=== PATIENT | female | born 1990 | race Caucasian/White ===

== ENCOUNTER → 2020-10-04 | Outpatient (CLI) | payer OTHER, SELFPAY ==
[2020-10-04 15:23] VITALS: BMI 41.8
[2020-10-04 17:05] LABS: Amphetamine Urine VISTA NEGATIVE (<1000 ng/mL); Barbiturate Urine VISTA NEGATIVE (< 200 ng/mL); Benzodiazepine Urine VISTA NEGATIVE (< 200 ng/mL); Cocaine Urine VISTA NEGATIVE (< 300 ng/mL); Ecstacy Urine VISTA NEGATIVE (< 500 ng/mL); Methadone Urine VISTA NEGATIVE (< 300 ng/mL); PCP Urine VISTA NEGATIVE (< 25 ng/mL); THC Urine VISTA NEGATIVE (< 50 ng/mL); Vista UDS pH Range 6
[2020-10-07 06:07] LABS: Chlamydia By Nucleic Acid AMP Negative (Negative)
[2020-10-07 13:43] LABS: Gonococcus By Nucleic Acid AMP Negative (Negative)
== END | disposition home or self-care (01) ==
LOC: LABSPEC 16:04
PROVIDERS: Referring Provider Obstetrics & Gynecology; Visit Provider Obstetrics & Gynecology
DX: Z34.80 Encounter for supervision of other normal pregnancy, unspecified trimester (principal)
CPT/HCPCS: 80307; 87086; 87088; 87491; 87591

== ENCOUNTER → 2020-10-26 13:06 | Outpatient (CLI) | payer OTHER, SELFPAY ==
[2020-10-04 15:23] VITALS: BMI 41.8
[2020-10-26 14:21] LABS: Absolute Lymphocyte Count 3.45 X10^3/uL (0.83-4.51); Basophil# 0.06 X10^3/uL; Basophil% 0.6 % (0-1); Hematocrit 38.3 % (37-47); Hemoglobin 12.9 g/dL (12.0-15.0); Lymphocyte # 3.45 X10^3/ul (4.0); Lymphocyte % 33.6 % (19-41); Mean Corp Hgb Conc 33.7 g/dL (32-36); Mean Corpuscular Volume 89.1 fL (81-99); Mean Platelet Vol. 8.5 fl (6.2-12.0); Monocyte# 0.66 X10^3/uL; Monocyte% 6.4 % (0-10); NRBC Flagged by Analyzer 0 % (0-5); Neutrophil # 5.96 X10^3/uL (2.7-7.7); Neutrophil % 57.9 % (47-70); Platelet Count 417 K/mm3 (150-450); RBC Distribution Width CV 13.3 % (11.6-14.6); RBC Distribution Width SD 43.6 fl (35.1-43.9); White Blood Count 10.3 K/mm3 (4.4-11.0)
[2020-10-26 14:40] LABS: Glucose Challenge Gest 1H 50g 192 mg/dL (70-140)
[2020-10-26 14:58] LABS: Thyroid Stim Hormone (TSH) 4.54 uIU/mL (0.358-3.74)
[2020-10-26 15:22] LABS: HIV - WCH Non-Reactive (Nonreactive); Hepatitis B Surface Antigen Non-Reactive (Nonreactive); Hepatitis C Antibody Non-Reactive (Nonreactive); Rubella IgG Reactive (Nonreactive); Syphilis Antibodies Non-reactive
== END ==
LOC: PAVLAB 13:10
PROVIDERS: Referring Provider Obstetrics & Gynecology; Visit Provider Obstetrics & Gynecology
DX: O99.210 Obesity complicating pregnancy, unspecified trimester (principal); O99.280 Endocrine, nutritional and metabolic diseases complicating pregnancy, unspecified trimester; E07.9 Disorder of thyroid, unspecified; Z3A.00 Weeks of gestation of pregnancy not specified; Z84.81 Family history of carrier of genetic disease
CPT/HCPCS: 36415; 82950; 84443; 85025; 86703; 86762; 86803; 86850; 86900; 86901; 87340

== ENCOUNTER → 2020-12-23 13:28 | Outpatient (CLI) | payer OTHER, SELFPAY ==
[2020-11-29 15:12] VITALS: BMI 42.8
[2020-12-09 08:51] VITALS: BMI 41.7
--- NOTE | 2020-12-23 13:31 | US_ITS ---
STUDY: SECOND AND THIRD TRIMESTER OBSTETRICAL ULTRASOUND REASON FOR EXAM: Female, 30 years old anatomy LMP: 08/08/2020 TECHNIQUE: Transabdominal TECHNICAL QUALITY: Adequate. PRIOR ULTRASOUND: None. FINDINGS: There is a single intrauterine fetus. The fetus is in a cephalic presentation. There is demonstrated cardiac activity with a heart rate of 149 bpm. There is a normal amniotic fluid volume. The largest amniotic fluid pocket measures 4.7 cm. The amniotic fluid index (ALBERTA) is cm. The placenta is anterior in location and is not low lying. There are Grade 0 placental changes. The cervix measures 4.3 cm in length. The adnexal regions are not visualized. BIOMETRY: BPD: 4.9 cm: 20 weeks, 6 days HC: 17.9 cm: 20 weeks, 2 days AC: 15.5 cm: 20 weeks, 4 days FL: 3.3 cm: 20 weeks, 2 days CI: 82.93% FL/BPD: 67.31% FL/HC: 18.46% FL/AC: 21.33% HC/AC: 1.16 age by current US: 20 weeks, 1 days. ESAU by current US: 05/11/2021. Estimated weight: 364 grams, +/- 55 grams, 92 %. Age by LMP: 19 weeks, 4 days. ESAU by LMP: 05/15/2021. ANATOMY: Gender: Male Cranium: Normal lateral ventricles. Normal choroid plexus. Normal cerebellum. Normal cisterna magna. Normal face, nose and lips. Chest: Normal 4-chamber heart. Abdomen/Pelvis: Normal diaphragm. Normal stomach. Normal abdominal wall. Normal cord insertion. Normal 3 vessel cord. Normal kidneys. Normal bladder. Spine: Normal cervical spine. Normal thoracic spine. Normal lumbar spine. Normal sacrum. Extremities: Normal bilateral upper extremities. Normal bilateral lower extremities. US/OB Anatomy Scan IMPRESSION: Living intrauterine of 20 weeks 1 day as described above. Electronically Signed: Javier Rust MD at 8:37 EDT Tel , Service support ,
== END ==
LOC: OPUS 13:29
PROVIDERS: Referring Provider Obstetrics & Gynecology; Visit Provider Obstetrics & Gynecology
DX: Z34.80 Encounter for supervision of other normal pregnancy, unspecified trimester (principal)
CPT/HCPCS: 76805; 76817

== ENCOUNTER → 2021-02-25 16:09 | Outpatient (CLI) | payer OTHER, SELFPAY ==
[2021-02-25 15:15] VITALS: BMI 42.1
[2021-02-25 17:44] LABS: T4 Free Direct 0.88 ng/dL (0.76-1.46); Thyroid Stim Hormone (TSH) 1.83 uIU/mL (0.358-3.74)
== END ==
LOC: LAB 16:10
PROVIDERS: Referring Provider Obstetrics & Gynecology; Visit Provider Obstetrics & Gynecology
DX: E07.9 Disorder of thyroid, unspecified (principal)
CPT/HCPCS: 36415; 84439; 84443

== ENCOUNTER → 2021-03-19 08:35 | Outpatient (CLI) | payer OTHER, SELFPAY ==
[2021-03-17 09:09] VITALS: BMI 42.1
--- NOTE | 2021-03-19 08:38 | US_ITS ---
HISTORY: abdominal mass LUQ r/o hernia pt is 32 weeks per patient -palp occurred after sneezing and is sore -x 1 week. TECHNIQUE: Real time left upper quadrant ultrasound performed in the transverse and coronal planes. # of images including paperwork 58. COMPARISON: None. FINDINGS: The left kidney is 11.6 cm in length with a cortical thickness of 1.6 cm. No hydronephrosis or gross renal mass is seen. The spleen is 10.7 cm in length and homogeneous in echotexture. No fluid collection or hernia is identified. Intrauterine gestation partially visualized. US/Abdomen Limited IMPRESSION: Unremarkable examination of the left upper quadrant. at 0946 Reported and signed by: Twila Chao MD Electronically Signed: Twila Chao MD at 9:45 EDT Tel , Service support ,
== END ==
PROVIDERS: Referring Provider Nurse Practitioner Women's Health; Visit Provider Nurse Practitioner Women's Health
DX: R19.00 Intra-abdominal and pelvic swelling, mass and lump, unspecified site (principal)
CPT/HCPCS: 76705

== ENCOUNTER → 2021-03-22 12:14 | Outpatient (CLI) | payer OTHER, SELFPAY ==
[2021-02-25 15:15] VITALS: BMI 42.1
[2021-03-17 09:09] VITALS: BMI 42.1
--- NOTE | 2021-03-22 12:19 | US_ITS ---
STUDY: SECOND AND THIRD TRIMESTER OBSTETRICAL ULTRASOUND - LIMITED REASON FOR EXAM: Female, 31 years old GDMA -- 32 weeks LMP: 08/08/2020. PRIOR ULTRASOUND: Comparison is made with prior study dated 12/23/2020. TECHNIQUE: Transabdominal TECHNICAL QUALITY: Adequate. FINDINGS: There is a single intrauterine fetus. The fetus is in a cephalic presentation. There is demonstrated cardiac activity with a heart rate of 136 bpm. There is a normal amniotic fluid volume. The largest amniotic fluid pocket measures 4.2 cm x 5.5 cm. The amniotic fluid index (ALBERTA) is 15.81 cm. The placenta is anterior in location and is not low lying. There are Grade 1 placental changes. The cervix measures 3 cm in length. BIOMETRY: BPD: 8.75 cm: 35 weeks, 2 days HC: 32.21 cm: 36 weeks, 2 days AC: 30.5 cm: 34 weeks, 3 days FL: 6.3 cm: 32 weeks, 4 days Age by LMP: 32 weeks, 2 days. ESAU by LMP: 05/15/2020. age by prior US: 33 weeks, 1 days. ESAU by prior US: 05/11/2021. age by current US: 34 weeks, 2 days. ESAU by current US: 05/01/2021. Estimated weight: 2368 grams, +/- 355 grams, 90.8 percentile. US/OB Limited With Biometrics IMPRESSION: Single live uterine gestation with a mean gestational age of 33 weeks and 1 day. The measurements obtained today fall within normal expected range. Electronically Signed: Enio Cherry MD at 14:58 EDT , Service support ,
== END ==
PROVIDERS: Referring Provider Obstetrics & Gynecology; Visit Provider Obstetrics & Gynecology
DX: O24.419 Gestational diabetes mellitus in pregnancy, unspecified control (principal); Z3A.00 Weeks of gestation of pregnancy not specified
CPT/HCPCS: 76816

== ENCOUNTER → 2021-03-29 16:19 | Outpatient (CLI) | payer OTHER, SELFPAY ==
[2021-03-29 15:26] VITALS: BMI 42.1
--- NOTE | 2021-03-29 16:26 | US_ITS ---
STUDY: OBSTETRICAL ULTRASOUND - BIOPHYSICAL PROFILE REASON FOR EXAM: Female, 31 years old decrease movement . well-being. LMP: 08/08/2020. PRIOR ULTRASOUND: Comparison is made with prior examination dated 03/22/2021. TECHNIQUE: Transabdominal TECHNICAL QUALITY: Adequate. FINDINGS: There is a single intrauterine fetus. The fetus is in a cephalic presentation. There is demonstrated cardiac activity with a heart rate of 166 bpm. There is a normal amniotic fluid volume. The largest amniotic fluid pocket measures 4.9 cm x 5.4 cm. The amniotic fluid index (ALBERTA) is 12.73 cm. The placenta is anterior in location and is not low lying. There are Grade 2 placental changes. Age by LMP: 32 weeks, 2 days. ESAU by LMP: 05/15/2021. BIOPHYSICAL PROFILE: Breathing Movements (FBM): 2 Gross Body Movements (GBM): 2 Tone (FT): 2 Amniotic Fluid Volume (AFV): 2 TOTAL SCORE: / US/Biophysical Prof W/O Non Stres IMPRESSION: Normal biophysical profile of 04/10. Electronically Signed: Enio Cherry MD at 20:19 EDT , Service support ,
== END ==
LOC: US 16:22
PROVIDERS: Referring Provider Obstetrics & Gynecology; Visit Provider Obstetrics & Gynecology
DX: O36.8190 Decreased fetal movements, unspecified trimester, not applicable or unspecified (principal); Z3A.00 Weeks of gestation of pregnancy not specified
CPT/HCPCS: 76819

== ENCOUNTER → 2021-04-12 15:40 | Outpatient (CLI) | payer OTHER, SELFPAY ==
[2021-04-12 15:20] VITALS: BMI 42.1
[2021-04-12 16:34] LABS: Absolute Lymphocyte Count 2.61 X10^3/uL (0.83-4.51); Absolute Neutrophil Count 4.7 X10^3/uL (2.0-7.7); Basophil# 0.03 X10^3/uL; Basophil% 0.4 % (0-1); Eosinophil# 0.08 X10^3/uL; Hematocrit 37.4 % (37-47); Hemoglobin 12.1 g/dL (12.0-15.0); Lymphocyte # 2.61 X10^3/ul (0.83-4.51); Lymphocyte % 32.6 % (19-41); Mean Corp Hgb Conc 32.4 g/dL (32-36); Mean Corpuscular Hgb 27.4 pg (27.0-32.0); Mean Corpuscular Volume 84.8 fL (81-99); Mean Platelet Vol. 9.6 fl (6.2-12.0); Monocyte# 0.59 X10^3/uL; Monocyte% 7.4 % (0-10); NRBC Flagged by Analyzer 0 % (0-5); Neutrophil # 4.66 X10^3/uL (2.7-7.7); Neutrophil % 58.1 % (47-70); Platelet Count 483 K/mm3 (150-450); RBC Distribution Width SD 46.3 fl (35.1-43.9); Red Blood Count 4.41 M/mm3 (4.2-5.4)
[2021-04-12 17:07] LABS: ALB/GLOB Ratio 0.6 RATIO (0.9-2.4); AST(SGOT) 19 U/L (15-37); Alanine Aminotransfer ALT/SGPT 26 U/L (13-56); Albumin, Serum 2.7 g/dL (3.2-5.0); Alkaline Phosphatase 189 U/L (45-117); Anion Gap 9 (5-15); BUN 11 mg/dL (7-18); BUN/Creat Ratio 15.4 RATIO (10-20); Calcium,Total 9.5 mg/dL (8.5-10.1); Chloride 103 mmol/L (98-107); Creatinine, Serum 0.72 mg/dL (0.55-1.02); EST Glomerular Filtration Rate 102 mL/min (>60); Est Glom Filt Rate - Afr Amer 124 mL/min (>60); Globulin 4.8 g/dL (2.2-4.2); Glucose 99 mg/dL (74-106); Potassium 4.2 mmol/L (3.5-5.1); Protein, Total 7.5 g/dL (6.4-8.2); Sodium Level 134 mmol/L (136-145)
[2021-04-12 17:31] LABS: Protein, Urine (Random) 52.9 mg/dL (<11.9); Protein:Creat Ratio 224 mg/g CRE (0-200)
== END ==
LOC: LABSPEC 15:42 → LAB 15:58
PROVIDERS: Referring Provider Nurse Practitioner Women's Health; Visit Provider Nurse Practitioner Women's Health
DX: O12.10 Gestational proteinuria, unspecified trimester (principal); Z3A.00 Weeks of gestation of pregnancy not specified
CPT/HCPCS: 36415; 80053; 82570; 84156; 85025

== ENCOUNTER → 2021-04-18 | Outpatient (CLI) | payer OTHER, SELFPAY ==
[2021-04-18 08:22] VITALS: BMI 45.3
== END | disposition home or self-care (01) ==
PROVIDERS: Visit Provider Nurse Practitioner Women's Health
DX: Z34.93 Encounter for supervision of normal pregnancy, unspecified, third trimester (principal)
CPT/HCPCS: 87081

== ENCOUNTER → 2021-04-19 12:13 | Outpatient (CLI) | payer OTHER, SELFPAY ==
[2021-02-25 15:15] VITALS: BMI 42.1
[2021-04-18 08:22] VITALS: BMI 45.3
[2021-04-18 09:10] LABS: ROM Internal Control Test YES-OK TO RESULT pt. (Internal QC); ROM Patient Test Negative (Negative)
--- NOTE | 2021-04-19 12:16 | US_ITS ---
STUDY: SECOND AND THIRD TRIMESTER OBSTETRICAL ULTRASOUND - LIMITED REASON FOR EXAM: Female, 31 years old GDMA -- 36 weeks LMP: 08/08/2020. PRIOR ULTRASOUND: Comparison is made with prior study dated 03/29/2021. TECHNIQUE: Transabdominal TECHNICAL QUALITY: Adequate. FINDINGS: There is a single intrauterine fetus. The fetus is in a cephalic presentation. There is demonstrated cardiac activity with a heart rate of 148 bpm. There is a normal amniotic fluid volume. The largest amniotic fluid pocket measures 6.5 cm x 8.1 cm. The amniotic fluid index (ALBERTA) is 16.3 cm. The placenta is anterior in location and is not low lying. There are Grade 2 placental changes. The cervix was not measured. The patient did not fill the bladder adequately. BIOMETRY: BPD: 9.39 cm: 38 weeks, 1 days HC: 34.22 cm: 39 weeks, 3 days AC: 35.02 cm: 38 weeks, 6 days FL: 7.18 cm: 36 weeks, 5 days Age by LMP: 36 weeks, 2 days. ESAU by LMP: 05/15/2021. age by prior US: 38 weeks, 2 days. ESAU by prior US: 05/01/2021. age by current US: 38 weeks, 3 days. ESAU by current US: 04/30/2021. Estimated weight: 3492 grams, +/- 5.4 grams, 94.8 percentile. US/OB Limited With Biometrics IMPRESSION: Single live intrauterine gestation with a mean gestational age of 38 weeks and 2 days. The measurements obtained today fall within the normal expected range. Electronically Signed: Enio Cherry MD at 13:23 EDT , Service support ,
== END ==
LOC: OPUS 12:13
PROVIDERS: Nurse Practitioner Women's Health; Referring Provider Obstetrics & Gynecology; Visit Provider Obstetrics & Gynecology
DX: O24.419 Gestational diabetes mellitus in pregnancy, unspecified control (principal); Z3A.36 36 weeks gestation of pregnancy
CPT/HCPCS: 76816; 84112

== ENCOUNTER 2021-04-26 06:05 | Inpatient (IN) | payer OTHER, SELFPAY ==
[2021-04-26] VITALS (47 sets, daily range): BP systolic 105–167; BP diastolic 58–97; PULSE 59–108; RESP 16; TEMP 36.1–37.4; O2SAT 91–100; BMI 47.6
[2021-04-26] MEDS: Lactated Ringers 500 ML 999 ML IV (06:20)
[2021-04-26] MEDS: Lactated Ringers 1,000 ML 200 ML IV ×3 (06:20→16:36)
[2021-04-26 06:35] LABS: Absolute Lymphocyte Count 2.78 X10^3/uL (0.83-4.51); Absolute Neutrophil Count 5.7 X10^3/uL (2.0-7.7); Basophil# 0.06 X10^3/uL; Basophil% 0.6 % (0-1); Eosinophils% 1.1 % (0-5); Hematocrit 38.8 % (37-47); Hemoglobin 12.2 g/dL (12.0-15.0); Lymphocyte # 2.78 X10^3/ul (0.83-4.51); Lymphocyte % 29.8 % (19-41); Mean Corp Hgb Conc 31.4 g/dL (32-36); Mean Corpuscular Hgb 27.1 pg (27.0-32.0); Mean Corpuscular Volume 86.2 fL (81-99); Mean Platelet Vol. 10.1 fl (6.2-12.0); Monocyte# 0.67 X10^3/uL; Monocyte% 7.2 % (0-10); NRBC Flagged by Analyzer 0 % (0-5); Neutrophil # 5.67 X10^3/uL (2.7-7.7); Neutrophil % 60.7 % (47-70); Platelet Count 392 K/mm3 (150-450); RBC Distribution Width CV 15.8 % (11.6-14.6); RBC Distribution Width SD 48.6 fl (35.1-43.9); White Blood Count 9.3 K/mm3 (4.4-11.0)
[2021-04-26 06:40] LABS: Bedside Glucose 111 mg/dL (70-110)
[2021-04-26] MEDS: fentaNYL-bupivacaine (epidural) 100 ML BAG EPIDURAL ×3 (07:29→16:37)
--- NOTE | 2021-04-26 07:38 | HP.PCM.OB_ITS ---
HPI - General General Date of Admission: 04/26/21 HPI Narrative VALENTE SHEFFIELD, is a 31 F who presents in active labor 5 to 6 cm dilated patient has had a complicated by diabetes which has been well controlled with insulin. She denies any loss of fluid admits some bloody show Maternal Data Information ESAU Calculator Estimated Delivery Date Method Current WG Current Estimate 05/15/21 LMP (Certain) 37w 2d Other Estimates 05/15/21 Ultrasound #1 37w 2d PFSH PFSH Medical History (Updated 04/26/21 @ 06:18 by Larissa Guzman) Gestational diabetes Thyroid disease Home Medications multivitamin no.47-iron fum 27 mg-folate no.1 1 mg-dha 300 mg capsule 1 cap PO 09/29/20 [History Last Taken Unknown] blood-glucose meter #1 ea 11/29/20 [Rx Last Taken Unknown] lancets #100 ea 11/29/20 [Rx Last Taken Unknown] blood sugar diagnostic #150 each 12/09/20 [Rx Last Taken Unknown] lancets 33 gauge #150 each 12/09/20 [Rx Last Taken Unknown] OneTouch Ultra Blue Test Strip #150 each NS 12/26/20 [Rx Last Taken Unknown] pen needle, diabetic 32 gauge x /32 #150 each 01/04/21 [Rx Last Taken Unknown] insulin detemir U-100 [Levemir FlexTouch U-100 Insuln] 52 unit SUBCUT QHS 04/26/21 [History Last Taken Unknown] insulin lispro [Humalog KwikPen Insulin] 22 unit SUBCUT TID 04/26/21 [History Last Taken Unknown] Allergy/AdvReac Type Severity Reaction Status Date / Time No Known Allergies Allergy Verified 04/18/21 08:24 Family History Mother Hypertension Grandmother Diabetes Social History household members: family housing: house number of children: 1 current occupational status: employed current occupation: [employer] pets and animals: Yes Smoking Status: Never smoker second hand exposure: No alcohol intake: current details: not while substance use type: does not use seatbelt use: always do you feel safe at home: Yes additional social history: - Andry History 2 Elective abortions Hx Para 1 Spontaneous abortions Hx # Term Pregnancies Ectopic pregnancies Hx # Pregnancies Multiple births # of living children 1 Past Pregnancies Del. Date Name GA/Weeks Outcome Route Bth Weight Infant Gen Labor Lgth Anesthesia Del Locatn Provider FOB 08/17/15 Missy 38 live - full term 6lbs 1oz Female 48 h ours epidural Argueta Andry Delivery Date: 08/17/15 no complications Nisha Ann Visit Details Expected Delivery Route/Plan Labor Preferences- CB/BF classes: no labor support person: Andry labor intervention preferences: open to standard interventions pain management options preferred:epidural cut cord/dad catch: [] : [] PP control planned: [] discussed possible routes of delivery and associated risks: [] special requests: [] Plans flu vaccine: [] tdap vaccine: given rhogam: na LARC form signed: [] Problem list reviewed and updated with the most current plan of care details and appropriate orders placed. Relevant counseling for the gestational age provided. Continue routine care and follow up unless otherwise noted in visit notes/problem list details OB Flowsheet Initial Weight: Not Recorded Date -?-?-?-?-?-?-?-?-?-?-?-?- EGA Weight BP Urine Prot -?-?-?-?-?-?-?-?-?-?-?-?- Glucose FHR FuHt Pres Dilation -?-?-?-?-?-?-?-?-?-?-?-?- Effaced St Visit Note 10/04/20 -?-?-?-?-?-?-?-?-?-?-?-?- 8w 1d 214 lb 6 oz 136/88 -?-?-?-?-?-?-?-?-?-?-?-?- 175 -?-?-?-?-?-?-?-?-?-?-?-?- GP - CRL 15mm co nsistent with LMP. 11/05/20 -?-?-?-?-?-?-?-?-?-?-?-?- 12w 5d 217 lb 6 oz 138/82 Nega tive -?-?-?-?-?-?-?-?-?-?-?-?- Negative 150 -?-?-?-?-?-?-?-?-?-?-?-?- GP - no cramping or bleeding. Plan MFM referral for low fraction. Discussed fasting too high to perform 3 hour - plan endo and final dressing cutter. 11/29/20 -?-?-?-?-?-?-?-?-?-?-?-?- 16w 1d 219 lb 4 oz 138/86 Nega tive -?-?-?-?-?-?-?-?-?-?-?-?- Negative 140 -?-?-?-?-?-?-?-?-?-?-?-?- GP - no cramping or bleeding. Decided against MFM and repeating NIPT - want to wait for anatomy scan. Has not started testing BGTs - re-sent testing supplies. Given number to call endo. 12/29/20 -?-?-?-?-?-?-?-?-?-?-?-?- 20w 3d 223 lb 132/74 Negative -?-?-?-?-?-?-?-?-?-?-?-?- Negative 145 -?-?-?-?-?-?-?-?-?-?-?-?- GP - no ctx, LOF , VB. Not yet feeling regular movement. BGTs controlled on insulin. Discussed testing. 01/24/21 -?-?-?-?-?-?-?-?-?-?-?-?- 24w 1d 226 lb 6 oz 138/80 Nega tive -?-?-?-?-?-?-?-?-?-?-?-?- Negative 145 24 -?-?-?-?-?-?-?-?-?-?-?-?- GP - no LOF, VB, DFM, ctx. BGTs controlled. CBC next visit. 02/25/21 -?-?-?-?-?-?-?-?-?-?-?-?- 28w 5d 234 lb 126/84 Negative -?-?-?-?-?-?-?-?-?-?-?-?- Negative 145 28 -?-?-?-?-?-?-?-?-?-?-?-?- SM- no vb lof go od fm no regular ctx SM- no vb lof good fm no reg ular ctxBS controlled discussed testing tdap check thyroid levels 03/11/21 -?-?-?-?-?-?-?-?-?-?-?-?- 30w 5d 237 lb 130/80 Negative -?-?-?-?-?-?-?-?-?-?-?-?- Negative 145 33 -?-?-?-?-?-?-?-?-?-?-?-?- SM- no vb lof go od fm no reuglar ctx, BS fairly controlled, adjusting with Dr Carrera 03/17/21 -?-?-?-?--?-?-?-?-?-?-?-?- 31w 4d 236 lb 6 oz 114/66 Nega tive -?-?-?-?-?-?-?-?-?-?-?-?- Negative 152 -?-?-?-?-?-?-?-?-?-?-?-?- -Work in for p ainful lump left abdomen-<1cm tender lump ULQ. Rates as 7 when touched. Noted 10 days ago after sneezing. Good FM, no VB, LOF. Abdominal US ordered 03/22/21 -?-?-?-?-?-?-?-?-?-?-?-?- 32w 2d 237 lb 110/78 Negative -?-?-?-?-?-?-?-?-?-?-?-?- 1000 g/dL 140 -?-?-?-?-?-?-?-?-?-?-?-?- -NST only reac tive 03/25/21 -?-?-?-?-?-?-?-?-?-?-?-?- 32w 5d 239 lb 124/78 Negative -?-?-?-?-?-?-?-?-?-?-?-?- 500 g/dL 140 33 -?-?-?-?-?-?-?-?-?-?-?-?- SM- no vb lof go od fm no regular ctx 03/29/21 -?-?-?-?-?-?-?-?-?-?-?-?- 33w 2d 236 lb 6 oz 122/76 Nega tive -?-?-?-?-?-?-?-?-?-?-?-?- Negative 140 -?-?-?-?-?-?--?-?-?-?-?-?- MH-nonreactive N ST, DFM. Sent for BPP 04/01/21 -?-?-?-?-?-?-?-?-?-?-?-?- 33w 5d 238 lb 8 oz 138/80 Nega tive -?-?-?-?-?-?-?-?-?-?-?-?- Negative 140 33 -?-?-?-?-?-?-?-?-?-?-?-?- GP - no LOF, VB, DFM, ctx. NST reactive. 04/05/21 -?-?-?-?-?-?-?-?-?-?-?-?- 34w 2d 243 lb 138/86 Negative -?-?-?-?-?-?-?-?-?-?-?-?- Negative 140 -?-?-?-?-?-?-?-?-?-?-?-?- MH-reactive NST only 04/08/21 -?-?-?-?-?-?-?-?-?-?-?-?- 34w 5d 243 lb 120/84 Negative -?-?-?-?-?-?-?-?-?-?-?-?- Negative 140 -?-?-?-?-?-?-?-?-?-?-?-?- SM- BS controlle d no vb lof good no regular ctx 04/12/21 -?-?-?-?-?-?-?-?-?-?-?-?- 35w 2d 239 lb 138/84 126/78 1+ -?-?-?-?-?-?-?-?-?-?-?-?- Negative 150 -?-?-?-?-?-?-?-?-?-?-?-?- -NST only reac tive BP WNL. Note proteinuria:Pre E labs orde red. Denies headache, CTX, LOF or VB. 04/15/21 -?-?-?-?-?-?-?-?-?-?-?-?- 35w 5d 241 lb 3 oz 126/78 Trac e -?-?-?-?-?-?-?-?-?-?-?-?- Negative 130 36 -?-?-?-?-?-?-?-?-?-?-?-?- GP - no LOF, VB, DFM, ctx. Discussed labor preferences. NST reactive. 04/18/21 -?-?-?-?-?-?-?-?-?-?-?-?- 36w 1d 240 lb 2 oz 140/86 134/88 Trace -?-?-?-?-?-?-?-?-?-?-?-?- Negative 1 -?-?-?-?-?-?-?-?-?-?-?-?- 30 -3 -work in for leaking fluid, cramping, DFM. Rom pending. NST: 04/21/21 -?-?-?-?-?-?-?-?-?-?-?-?- 36w 4d 242 lb 130/74 -?-?-?-?-?-?-?-?-?-?-?-?- 130 -?-?-?-?-?-?-?-?-?-?-?-?- SM- no vb lof go od fm no reular ctx 04/26/21 -?-?-?-?-?-?-?-?-?-?-?-?- 37w 2d 244 lb 154/80 147/96 147/97 125/67 123/74 138/63 -?-?-?-?-?-?-?-?-?-?-?-?- -?-?-?-?-?-?-?-?-?-?-?-?- NST FHR Rate Baby A Baseline: 130 Variability:: Moderate Accelerations:: 15 x 15 Decelerations:: None NST Reactive:: Yes FHR Category:: Category I Uterine Activity:: q3-5 ROS Constitutional Constitutional: Reports systems reviewed and no addt'l complaints, except as documented ENT HEENT: Reports systems reviewed and no addt'l complaints, except as documented Cardiovascular Cardiovascular: Reports systems reviewed and no addt'l complaints, except as documented Respiratory/Chest Respiratory/Chest: Reports systems reviewed and no addt'l complaints, except as documented Gastrointestinal Gastrointestinal: Reports systems reviewed and no addt'l complaints, except as documented and nausea; Denies abdominal pain Genitourinary Genitourinary: Reports systems reviewed and no addt'l complaints, except as documented, contractions Details: present and frequency (regular ) and movement Details: present Musculoskeletal Musculoskeletal: Reports systems reviewed and no addt'l complaints, except as documented Integumentary Integumentary: Reports as per HPI Neurologic Neurologic: Reports systems reviewed and no addt'l complaints, except as documented Endocrine Endocrinology: Reports systems reviewed and no addt'l complaints, except as documented Vital Signs Vital Signs Vital Signs: 04/26/21 05:46 04/26/21 05:47 04/26/21 06:00 Temperature 97.9 F Temperature Source Temporal Pulse Rate 97 Blood Pressure 154/80 H BP Systolic 154 BP Diastolic 80 Pulse Ox 97 04/26/21 07:13 04/26/21 07:18 04/26/21 07:19 Temperature Temperature Source Pulse Rate 99 97 Blood Pressure 147/96 H BP Systolic 147 BP Diastolic 96 Pulse Ox 98 97 04/26/21 07:23 04/26/21 07:24 04/26/21 07:26 Temperature Temperature Source Pulse Rate 93 108 H 93 Blood Pressure 147/97 H BP Systolic 147 BP Diastolic 97 Pulse Ox 96 91 04/26/21 07:28 04/26/21 07:29 04/26/21 07:33 Temperature 97.9 F Temperature Source Temporal Pulse Rate 90 96 90 Blood Pressure 125/67 H BP Systolic 125 BP Diastolic 67 Pulse Ox 97 97 04/26/21 07:35 Temperature Temperature Source Pulse Rate 108 H Blood Pressure 123/74 H BP Systolic 123 BP Diastolic 74 Pulse Ox Weight Weight: 244 lb Body Mass Index (BMI) 47.6 Physical Exam Const alert, oriented x3 and healthy appearing Constitutional Narrative: uncomfortable with contractions HEENT normocephalic and moist oral mucous membranes Head and Scalp: atraumatic Neck full ROM, no lymphadenopathy, supple and thyroid normal General: trachea midline Thyroid: thyroid normal Lymph Lymphatic: no lymphadenopathy noted Chest inspection of chest normal Resp normal respiratory effort Cardio regular rate GI normal to inspection, nondistended, normoactive bowel sounds, soft to palpation and non-tender Inspection: gravid external exam normal Bimanual Exam - Vag & Uterus: uterus non-tender Manual OB Exam: estimated gestational size appropriate, presentation cephalic, dilated, effaced and station Extremity normal to inspection General Extremity: Negative for edema Skin no rashes or lesions noted Neuro deep tendon reflexes 2+ bilaterally Motor Exam: strength 5/5 throughout and clonus absent Psych mental status grossly normal Labs Labs Labs: Blood Type O POSITIVE Antibody Screen NEGATIVE Hct 38.8 % (37-47) Hgb 12.2 g/dL (12.0-15.0) Obstetrics US Syphilis Total Ab Non-reactive Rubella IgG Antibody Reactive (Nonreactive) Hep Bs Antigen Non-Reactive (Nonreactive) Neisseria gonorrhoeae DNA (ANGEL) Negative (Negative) HIV 1&2 Antibody Non-Reactive (Nonreactive) Glucose 1 Hr 50 gm 192 mg/dL (70-140) H Miscellaneous Test Assessment & Plan (1) Abnormal genetic test: COMMENT: Insufficient NIPT at 11w. Offered repeat NIPT vs. genetic counseling. Decided against intervention. (2) : QUALIFIERS: Weeks of gestation: 36 weeks Qualified Code(s): Z3A.36 - 36 weeks gestation of COMMENT: low fraction Anatomy normal, EFW 92%, LGA 95% percentile. GBS neg (3) Thyroid disease: COMMENT: TSH elevated at NOB. Following with PCP. (4) Supervision of other normal : COMMENT: PRR ESAU: 05/15/21 Boy! PC: Missy Spouse: Andry PLAN: Patient presents IAL, plan expectant management for , pitocin/AROM PRN if needed. Pain management: plans epidural. GBS neg. Management of any complications: bs q 1 hr and drip of insulin as needed I have reviewed the [facility] and made any clinically relevant updates. (5) Family history of Down syndrome: COMMENT: Niece has Trisomy 21 (6) Gestational diabetes mellitus (GDM) affecting : COMMENT: Follows with Dr. Carrera. On insulin. Growths at 32w. Twice weekly testing starting 32w. Delivery by 39w. adequate growth 03/22, nl BPP (7) Proteinuria affecting : QUALIFIERS: Trimester: third trimester Qualified Code(s): O12.13 - Gestational proteinuria, third trimester
[2021-04-26 07:56] LABS: Bedside Glucose 105 mg/dL (70-110)
[2021-04-26 08:36] LABS: Bedside Glucose 113 mg/dL (70-110)
[2021-04-26 09:46] LABS: Bedside Glucose 108 mg/dL (70-110)
[2021-04-26 10:41] LABS: Bedside Glucose 104 mg/dL (70-110)
[2021-04-26 11:40] LABS: Bedside Glucose 103 mg/dL (70-110)
[2021-04-26] MEDS: Oxytocin 30 units/NS 500 ml 30 UNITS/500 ML IV.SOLN IV (12:36)
[2021-04-26 12:46] LABS: Bedside Glucose 90 mg/dL (70-110)
[2021-04-26 13:41] LABS: Bedside Glucose 80 mg/dL (70-110)
[2021-04-26 15:35] LABS: Bedside Glucose 82 mg/dL (70-110)
[2021-04-26 15:50] LABS: Bedside Glucose 74 mg/dL (70-110)
[2021-04-26 16:36] LABS: Bedside Glucose 76 mg/dL (70-110)
[2021-04-26] MEDS: Oxytocin 30 units/NS 500 ml 30 UNITS/500 ML IV.SOLN 334 UNITS IV (17:13)
[2021-04-26 17:50] LABS: Bedside Glucose 88 mg/dL (70-110)
--- NOTE | 2021-04-26 18:02 | EX.PCM.OBRPT ---
Assessment & Plan (1) Abnormal genetic test: COMMENT: Insufficient NIPT at 11w. Offered repeat NIPT vs. genetic counseling. Decided against intervention. (2) Gestational diabetes mellitus (GDM) affecting : COMMENT: Follows with Dr. Carrera. On insulin. Growths at 32w. Twice weekly testing starting 32w. Delivery by 39w. adequate growth 03/22, nl BPP (3) Supervision of other normal : COMMENT: PRR ESAU: 05/15/21 Boy! PC: Missy Spouse: Andry (4) : QUALIFIERS: Weeks of gestation: 36 weeks Qualified Code(s): Z3A.36 - 36 weeks gestation of COMMENT: low fraction Anatomy normal, EFW 92%, LGA 95% percentile. GBS neg (5) Vaginal delivery: COMMENT: 37 gdma2 sm boy Kale Maternal Data Information ESAU Calculator Estimated Delivery Date Method Current WG Current Estimate 05/15/21 LMP (Certain) 37w 2d Other Estimates 05/15/21 Ultrasound #1 37w 2d Vaginal Delivery Operative Information Date of Procedure: 04/26/21 Pre-Operative Diagnosis: IAL Post-Operative Diagnosis: same Surgery / Procedure Performed: Spontaneous Vaginal Delivery Type of Anesthesia: Epidural Special Medications: none Estimated Blood Loss: 100 Fluids Replaced: crystalloid Findings Description of Procedure: Patient began pushing and delivered the head in the MIS presentation. The head was delivered atraumatically . The anterior and posterior shoulders delivered without complication followed by the rest of the and the infant was placed on the maternal abdomen. Delayed cord clamping was employed for approximately 60 seconds. Cord was clamped and cut and gentle traction was applied to the cord and the placenta delivered spontaneously immediately following it was noted to be intact with three-vessel cord. The perineum and vagina were inspected and noted to have a second degree perineal repaired with 2-0 vicryl. EBL was 100 cc. Patient and infant tolerated delivery well. Presentation: MIS Amniotic Membrane Rupture Type: Artificial Amniotic Fluid Description: Clear Placental Delivery Description: Spontaneous Placenta Disposition: [facility] Cord Vessel Description: 3 Vessels Cord Entanglement: None Delayed Cord Clamping: Yes Post Vaginal Delivery Medications Given After Delivery: IV Pitocin Episiotomy Description: None Laceration: Perineal Extension/lac and 1st degree Complication Complications: None Procedures Urinary/Genital [id number]: [id number] Vaginal Delivery [facility]
[2021-04-26] MEDS: Acetaminophen 500 MG Tablet 1000 MG PO (19:56)
[2021-04-27] VITALS: BP 109/52; PULSE 75; RESP 16; TEMP 36.4; O2SAT 96
[2021-04-27] MEDS: Naproxen 500 MG Tablet PO (03:37)
[2021-04-27 04:49] VITALS: BP 115/63; PULSE 79; RESP 18; TEMP 36.5
[2021-04-27 05:21] LABS: Bedside Glucose 91 mg/dL (70-110)
[2021-04-27 07:35] VITALS: BP 143/72; PULSE 80; RESP 16; TEMP 36.3
--- NOTE | 2021-04-27 08:39 | PCM.PN.OB ---
Subjective Subjective Patient doing well without complaints. Tolerating PO. Ambulating and voiding without difficulty. Feeding well. Denies chest pain, shortness of breath, calf pain/swelling, fevers, chills, lightheadedness. Baby Kale in SCN/glucose Objective Data Objective Data Vital Signs: Vital Signs Temp Pulse Resp BP Pulse Ox 97.3 F L 80 16 143/72 H 96 04/27/21 07:35 04/27/21 07:35 04/27/21 07:35 04/27/21 07:35 04/27/21 00:00 Oxygen Delivery Method Room Air Weight: 244 lb Body Mass Index (BMI) 47.6 Intake & Output: Intake and Output for Last 24 Hours 04/25/21 04/26/21 04/27/21 23:59 23:59 23:59 Intake Total 3940.79 / 3940.79 Output Total 1000 / 1000 Balance 2940.79 / 2940.79 Lab / Micro Data Result Diagrams: 04/26/21 06:20 Labs: Laboratory Results - last 24 hr 04/26/21 09:24: POC Glucose 108 04/26/21 10:34: POC Glucose 104 04/26/21 11:29: POC Glucose 103 04/26/21 12:35: POC Glucose 90 04/26/21 13:32: POC Glucose 80 04/26/21 14:30: POC Glucose 82 04/26/21 15:38: POC Glucose 74 04/26/21 16:31: POC Glucose 76 04/26/21 17:41: POC Glucose 88 04/27/21 05:15: POC Glucose 91 Micro: Microbiology 04/26/21 06:20 Mucosa - Nose SARS-CoV-2 Antigen (Rapid) - Final Physical Exam Const alert and oriented x3 HEENT normocephalic Eyes PERRL Neck full ROM Resp normal respiratory effort GI soft to palpation GI Narrative: FF below U Assessment & Plan (1) Vaginal delivery: COMMENT: 37 gdma2 sm boy [place] (2) Gestational diabetes mellitus (GDM) affecting : COMMENT: Follows with Dr. Carrera. On insulin. Growths at 32w. Twice weekly testing starting 32w. Delivery by 39w. adequate growth 03/22, nl BPP PLAN: s/p PPD # 1 1. routine post delivery care 2. breast feeding- support given 3. rh positive 4. rubella immune 5. glucose stable
[2021-04-27 12:40] VITALS: BP 130/68; PULSE 70; RESP 16; TEMP 36.3
[2021-04-27] MEDS: Acetaminophen 500 MG Tablet 1000 MG PO (12:48)
[2021-04-27 15:46] VITALS: BP 129/62; PULSE 73; RESP 16; TEMP 36.6
[2021-04-27 19:32] VITALS: BP 126/58; PULSE 73; RESP 16; TEMP 36.5; O2SAT 95
[2021-04-28 03:00] VITALS: BP 134/62; PULSE 71; RESP 16; TEMP 36.1; O2SAT 95
[2021-04-28 07:38] VITALS: BP 126/60; PULSE 75; RESP 16; TEMP 36.7
--- NOTE | 2021-04-28 12:06 | PCM.DC ---
Discharge Instructions Diet Discharge Diet: No restrictions Activity Discharge Activity: Return to Normal Activity, May Not Drive (while taking narcotic pain medications.) and May Shower May resume sexual activity in: 4-6 weeks Dressing / Incision Call your doctor if your incision/area has: Continuous Slow Oozing, Sudden Increased Bleeding, Increased Pain/ Swelling, Increased Redness and Foul Smelling Discharge Follow Up Care Please Follow Up With: Marcelina Grigsby MD When: Call [phone] to make an appointment with your doctor in 6 weeks. If you had elevated blood pressure or 4th degree laceration, you will need to be seen in 2 weeks. Test Results: Test results from this visit will be discussed in further detail at your follow-up appointment, if applicable. Discharge Plan Admission Admit Date/Time: 04/26/21 06:05 Attending Provider: Marcelina Grigsby Primary Care Provider: Care Physician,No Primary Discharge Orders/Prescriptions Prescriptions: No Action PNV-DHA 27 mg iron-1 mg -300 mg capsule 1 cap PO RF: 0 (DME) Blood Glucose Test Strip See Rx Instructions .ROUTE .MEDSUPPLY Qty: 150 RF: 6 (DME) lancets [OneTouch Delica Lancets] 33 gauge misc See Rx Instructions .ROUTE .MEDSUPPLY Qty: 150 RF: 5 insulin lispro [Humalog KwikPen Insulin] 100 unit/mL insulin pen 22 unit subcut TID RF: 0 Levemir FlexTouch U-100 Insuln 100 unit/mL (3 mL) insulin pen 52 unit subcut QHS RF: 0 (DME) blood-glucose meter Misc See Rx Instructions .ROUTE .MEDSUPPLY Qty: 1 RF: 0 (DME) lancets Misc See Rx Instructions .ROUTE .MEDSUPPLY Qty: 100 RF: 6 (DME) OneTouch Ultra Blue Test Strip Strip See Rx Instructions .ROUTE .MEDSUPPLY Qty: 150 RF: 6 (DME) pen needle, diabetic [BD Ultra-Fine Stephenie Pen Needle] 32 gauge x 5/32 needle See Rx Instructions .ROUTE .MEDSUPPLY Qty: 150 RF: 5 Referrals / Follow Up: Care Physician,No Primary [Primary Care Provider] - Disposition Disposition (needs filled in before D/C Order can be placed): Home, Self Care
[2021-04-28 13:23] VITALS: BP 148/81; PULSE 75; RESP 16; TEMP 36.3
== END 2021-04-28 14:10 | disposition home or self-care (01) | DRG 807 ==
LOC: WPOUT 06:10 → WP 06:10
PROVIDERS: Admitting Provider Obstetrics & Gynecology; Referring Provider Obstetrics & Gynecology; Visit Provider Obstetrics & Gynecology
DX: O24.424 Gestational diabetes mellitus in childbirth, insulin controlled (principal); Z37.0 Single live birth; O70.1 Second degree perineal laceration during delivery; Z3A.37 37 weeks gestation of pregnancy
CPT/HCPCS: 59025; 59050; 82962; 85025; 86850; 86900; 86901; 87426; 99218; J7120; G0378

== ENCOUNTER → 2021-06-09 | Outpatient (CLI) | payer OTHER, SELFPAY ==
[2021-06-15 12:27] LABS: HPV Reflexed? NOT INDICATED
== END | disposition home or self-care (01) ==
PROVIDERS: Referring Provider Obstetrics & Gynecology; Visit Provider Obstetrics & Gynecology
DX: Z12.4 Encounter for screening for malignant neoplasm of cervix (principal)
CPT/HCPCS: 88175; G0145

== ENCOUNTER 2021-11-12 10:02 | Outpatient (CLI) | payer OTHER, SELFPAY ==
--- NOTE | 2021-11-12 10:05 | US_ITS ---
STUDY: ULTRASOUND OF THE FEMALE PELVIS - COMPLETE REASON FOR EXAM: Female, 31 years old. Abnormal bleeding x5 weeks LMP: 10/13/2021 TECHNIQUE: Transabdominal and Transvaginal TECHNICAL QUALITY: Adequate. COMPARISON: 04/19/2021 FINDINGS: The uterus is anteverted and is in a midline position. The uterus measures 10.3 x 6.0 x 4.2 cm. Normal uterine cervix. The endometrium measures 24 mm in thickness, and is hyperechoic. There is no demonstrated endometrial mass, there are endometrial cysts.. There is no demonstrated myometrial mass. I.U.D. - The patient does not have an I.U.D. The right ovary is visualized. The right ovary measures 2.6 x 1.9 x 1.9 cm. There is no right ovarian cyst or ovarian mass. There is no visualized right adnexal mass or complex lesion. There is normal arterial and normal venous vascularity. The left ovary is visualized. The left ovary measures 3.2 x 2.6 x 2.1 cm. There is no left ovarian cyst or ovarian mass. There is no visualized left adnexal mass or complex lesion. There is normal arterial and normal venous vascularity. There is no fluid in the cul-de-sac. The bladder is sonographically normal US/Transvaginal Non- IMPRESSION: No suspicious sonographic findings, the endometrium measures 24 mm in thickness but this is still within normal range for patient age. No suspicious adnexal mass or free fluid Electronically Signed: Daren Carreno MD at 11:18 EST ,
--- NOTE | 2021-11-12 10:05 | US_ITS ---
STUDY: ULTRASOUND OF THE FEMALE PELVIS - COMPLETE REASON FOR EXAM: Female, 31 years old. Abnormal bleeding x5 weeks LMP: 10/13/2021 TECHNIQUE: Transabdominal and Transvaginal TECHNICAL QUALITY: Adequate. COMPARISON: 04/19/2021 FINDINGS: The uterus is anteverted and is in a midline position. The uterus measures 10.3 x 6.0 x 4.2 cm. Normal uterine cervix. The endometrium measures 24 mm in thickness, and is hyperechoic. There is no demonstrated endometrial mass, there are endometrial cysts.. There is no demonstrated myometrial mass. I.U.D. - The patient does not have an I.U.D. The right ovary is visualized. The right ovary measures 2.6 x 1.9 x 1.9 cm. There is no right ovarian cyst or ovarian mass. There is no visualized right adnexal mass or complex lesion. There is normal arterial and normal venous vascularity. The left ovary is visualized. The left ovary measures 3.2 x 2.6 x 2.1 cm. There is no left ovarian cyst or ovarian mass. There is no visualized left adnexal mass or complex lesion. There is normal arterial and normal venous vascularity. There is no fluid in the cul-de-sac. The bladder is sonographically normal US/Pelvic (Non ) IMPRESSION: No suspicious sonographic findings, the endometrium measures 24 mm in thickness but this is still within normal range for patient age. No suspicious adnexal mass or free fluid Electronically Signed: Daren Carreno MD at 11:18 EST ,
[2021-11-12 11:05] LABS: Absolute Lymphocyte Count 3.05 X10^3/uL (0.83-4.51); Absolute Neutrophil Count 3.2 X10^3/uL (2.0-7.7); Basophil# 0.08 X10^3/uL; Basophil% 1.1 % (0-1); Eosinophils% 2.8 % (0-5); Hematocrit 38.9 % (37-47); Hemoglobin 12.6 g/dL (12.0-15.0); Lymphocyte # 3.05 X10^3/ul (0.83-4.51); Lymphocyte % 42.1 % (19-41); Mean Corp Hgb Conc 32.4 g/dL (32-36); Mean Corpuscular Hgb 29.2 pg (27.0-32.0); Mean Corpuscular Volume 90.3 fL (81-99); Mean Platelet Vol. 8.8 fl (6.2-12.0); Monocyte# 0.62 X10^3/uL; Monocyte% 8.6 % (0-10); NRBC Flagged by Analyzer 0 % (0-5); Neutrophil # 3.24 X10^3/uL (2.7-7.7); Neutrophil % 44.7 % (47-70); Platelet Count 343 K/mm3 (150-450); RBC Distribution Width CV 14.2 % (11.6-14.6); RBC Distribution Width SD 47.1 fl (35.1-43.9); Red Blood Count 4.31 M/mm3 (4.2-5.4); White Blood Count 7.2 K/mm3 (4.4-11.0)
== END 2021-11-12 23:59 | disposition home or self-care (01) ==
PROVIDERS: Referring Provider Obstetrics & Gynecology; Visit Provider Obstetrics & Gynecology
DX: N93.9 Abnormal uterine and vaginal bleeding, unspecified (principal)
CPT/HCPCS: 36415; 76830; 76856; 85025